=== PATIENT | female | born 1990 | race African-American/Black ===

== ENCOUNTER 2017-09-17 13:37 | Emergency (ER) | payer SELFPAY | END 2017-09-17 15:05 | disposition home or self-care (01) | LOC: ERS 13:37 | DX: S70.12XA Contusion of left thigh, initial encounter (principal); V43.52XA Car driver injured in collision with other type car in traffic accident, initial encounter | CPT/HCPCS: 99283 ==

== ENCOUNTER 2020-06-25 05:16 | Emergency (ER) | payer SELFPAY ==
[2020-06-25 07:11] LABS: Bilirubin Negative (Negative); Blood, Urine 3+ (Negative); Clarity Turbid (Clear); Glucose, Urine (Dipstick) Normal (Negative); Ketone, Urine Negative (Negative); Leukocyte 25 Leu/uL (Negative); Nitrite Negative (Negative); Protein, Urine (Dipstick) 50 mg/dL (Neg-Trace); RBC/HPF Greater than 50 HPF (0-3); Specific Gravity, Urine 1.011 (1.002-1.036); Urobilinogen Normal mg/dL (Less than 2); WBC/HPF 21-50 HPF (0-3)
[2020-06-25 07:21] LABS: Bacteria/HPF Rare-Few HPF (None Seen)
--- NOTE | 2020-06-25 07:46 | ULT ---
Exam: Transabdominal and endovaginal pelvic ultrasound HISTORY:Vaginal bleeding. Beta hCG is 226. COMPARISON: None TECHNIQUE: Transabdominal and endovaginal imaging of the pelvis is performed. Ovaries are interrogate d with grayscale, color flow, Doppler imaging and spectral wave form analysis FINDINGS: Uterus: Uterus is identified, without myometrial masses. Uterus measures 8.8 x 5.1 x 5.1 cm Endometrium: No evidence of a gestational sac, yolk sac or pole. There is debris within the low er uterine segment. Free fluid: None Right ovary: Normal echotexture Right ovary measurement: 3.8 x 1.6 x 1.9 cm Left ovary: Normal echotexture. 1.1 x 1.0 x 0.8 cm anechoic focus, compatible with a dominant follicl e. Left ovary measurements: 2.9 x 2.0 x 2 point cm Ovarian Doppler: There is vascular flow to the left and right ovary. IMPRESSION: Debris within the lower uterine segment. No sonographic evidence of an intrauterine gestation. Follow -up ultrasound and serial beta hCG is recommended. Transcribed Date/Time: 06/25/2020 8:09 AM
== END 2020-06-25 07:40 | disposition home or self-care (01) ==
LOC: ERS 05:16
DX: O20.9 Hemorrhage in early pregnancy, unspecified (principal); O23.41 Unspecified infection of urinary tract in pregnancy, first trimester; O99.281 Endocrine, nutritional and metabolic diseases complicating pregnancy, first trimester; E03.9 Hypothyroidism, unspecified; O99.511 Diseases of the respiratory system complicating pregnancy, first trimester; J45.909 Unspecified asthma, uncomplicated; Z79.899 Other long term (current) drug therapy
CPT/HCPCS: 36415; 76856; 81003; 81015; 84702; 86900; 86901

== ENCOUNTER 2020-06-28 09:19 | Emergency (ER) | payer SELFPAY | END 2020-06-28 11:01 | disposition home or self-care (01) | LOC: ERS 09:19 | DX: O03.9 Complete or unspecified spontaneous abortion without complication (principal); E03.9 Hypothyroidism, unspecified; J45.909 Unspecified asthma, uncomplicated | CPT/HCPCS: 36415; 84702; 99284 ==

== ENCOUNTER 2022-04-04 17:19 | Emergency (ER) | payer OTHER ==
[2022-04-04] MEDS ORDERED: Dexamethasone 4 mg/ml Vial ONE (18:11)
[2022-04-04] MEDS ORDERED: Ketorolac Tromethamine 30 MG/ML VIAL ONE (18:11)
== END 2022-04-04 20:17 | disposition home or self-care (01) ==
LOC: ERS 17:19
DX: J45.901 Unspecified asthma with (acute) exacerbation (principal); M54.9 Dorsalgia, unspecified; Z79.899 Other long term (current) drug therapy
CPT/HCPCS: 96372; 99284; J1100; J1885; J7620